=== PATIENT | female | born 1940 | race Caucasian/White ===

== ENCOUNTER 2024-03-04 08:15 | Emergency (ER) | payer OTHER, SELFPAY ==
[2024-03-04 08:28] VITALS: BP 150/73
--- NOTE | 2024-03-04 09:00 | ED.GENMED ---
History of Present Illness
General
Chief Complaint: Abdominal Pain
Source: patient and spouse
Exam Limitations: none
Time Seen by Provider: 03/04/24 08:39
Nursing documentation reviewed up to this point in time: agreed with
Travel History
Have you had any contact with someone who has COVID-19?: No
Do you have any symptoms of coronavirus? Fever > 100 degrees, chills, cough, shortness of breath, sore throat, loss of taste or smell, muscle aches, or headache?: No
History of Present Illness
History of Present Illness:
83-year-old female past medical history of pulmonary fibrosis, Parkinson's, hypertension presenting to the emergency department today with concerns of left lower quadrant abdominal pain started for bowel prep as sharp and somewhat severe does not
radiate. No changes in bowel movements or urination. No vomiting no fevers denies similar symptoms in the past.
Past History
Past History
ED Past Medical History: HTN, Valvular disease (Mitral valve regurg, heart murmur) and Other
ED Past Surgical History: Orthopedic (Bilateral total knee replacements) and Other (Back cyst)
Social History
Tobacco: Non-smoker
Alcohol: None
Drug: None
Personal:
Living: with family
Review of Systems
Review of Systems
Allergies reviewed?: Yes
All Other Systems: ROS reviewed and negative except as documented in HPI and ROS
Phy Exam
Physical Exam
Physical Exam:
GENERAL: Alert , in no apparent distress
EYE: pupils equal and reactive
NECK: Supple, no significant adenopathy.
ENT: o/p clr, mmm.
CARDIAC: Regular rate and rhythm .
LUNGS: Clear breath sounds bilaterally, no acute respiratory distress, no wheezes/rales/rhonchi
ABDOMEN: Generally soft abdomen minimal pain to left lower quadrant
NEUROLOGICAL: Alert and oriented, no focal neuro deficits
SKIN: Warm and dry, skin intact.
MUSCULOSKELETAL: No edema, well perfused.
PSYCH: Normal and appropriate interaction.
Course
Orders/Labs/Results
Orders:
Orders
03/04/24 08:58
CT Abd/Pel (IV only)-DH only Urgent
Comment:
Reason For Exam: llq pain
03/04/24 09:28
Complete Blood Count/With Diff Urgent
Comprehensive Metabolic Panel Urgent
Lactic Acid Urgent
Lipase Urgent
03/04/24 10:07
Iohexol [Omnipaque] See Protocol PO NOW STA
03/04/24 10:24
Ondansetron Injectable [Zofran] 4 mg IV NOW STA
03/04/24 13:14
Urinalysis Reflex To Culture Urgent
Date Specimen was Collected: 03/04/24
Time Specimen was Collected: 13:11
Urine Microscopic Reflex Cult Urgent
Urine Culture Urgent
EZE Source: U
Specimen Description:
Date Specimen was Collected: 03/04/24
Time Specimen was Collected: 13:11
Abnormal Lab Results
03/04/24 03/04/24
09:28 13:14
WBC 15.0 H 10^3/uL
(4.8-10.8)
RBC 3.83 L 10^6/uL
(4.20-5.40)
MCV 101.8 H fL
(81.0-99.0)
MCH 32.9 H pg
(27.0-31.0)
MCHC 32.3 L g/dL
(33.0-37.0)
RDW 14.9 H %
(11.5-14.5)
MPV 10.6 H fL
(7.4-10.4)
Abs Immat Gran (auto) 0.1 H 10^3/uL
(0-0.05)
Absolute Neuts (auto) 12.1 H 10^3/uL
(1.4-6.5)
Absolute Monos (auto) 1.1 H 10^3/uL
(0.1-0.6)
Neutrophils % 80.2 H %
(42.2-75.2)
Lymphocytes % 10.3 L %
(20.5-51.1)
Chloride 111 H mmol/L
(98-107)
Creatinine 0.5 L mg/dL
(0.6-1.0)
Glucose 122 H mg/dl
(70-99)
Urine Ketones 1+ A
(Negative)
Ur Occult Blood Reflex 2+ A
(Negative)
Leukocyte Esterase Rfl 1+ A
(Negative)
Urine RBC 3-6 A /HPF
(0-2)
Urine Bacteria (Reflex) Few A
(Negative)
03/04/24 09:28
03/04/24 09:28
Vital Signs
Initial and Last Documented VS:
Initial Vital Signs
Temp Pulse Resp BP Pulse Ox
97.7 F 70 18 150/73 97
03/04/24 08:28 03/04/24 08:28 03/04/24 08:28 03/04/24 08:28 03/04/24 08:28
Last Documented Vital Signs
Temp Pulse Resp BP Pulse Ox
97.7 F 70 18 136/91 97
03/04/24 08:28 03/04/24 08:28 03/04/24 08:28 03/04/24 12:00 03/04/24 13:45
MDM/Problems Addressed
MDM/Problems Addressed:
83-year-old female presenting to the emergency department today for concerns of left lower quad abdominal pain started few hours ago described as severe. Minimal discomfort to palpation. Plan for CT scan for further assessment otherwise vital
signs are normal here. No additional symptoms otherwise. Here patient has a slightly elevated white count otherwise vital signs normal throughout ER stay otherwise unremarkable urinalysis not consistent with UTI. CT scan without emergent
findings. Patient generally well-appearing with no ongoing abdominal discomfort with reassessment. She appear stable for outpatient management and close primary care follow-up. Return precautions given.
*Critical Care Note
Total Time (30-74mins, 75-104mins- exclusive of procedures): Not Applicable
ED Attending Note
-
Portions of this chart may have been created with voice recognition software.� Occasional wrong word or��sound alike� substitutions may have occurred due to the inherent limitations of voice recognition software.
Discharge Plan
Departure
Patient Disposition: Home (Routine Discharge)
Date of Disposition: 03/04/24
Time of Disposition: 14:33
Patient with high blood pressure during this ER visit?: No
Condition: Good
Covid-19: Not Applicable
Discharge Problem:
Abdominal pain
Instructions: Abdominal Pain
Prescriptions:
No Action
multivitamin [Daily Multiple] 1 EACH tablet
1 ea PO DAILY
coenzyme D77-sbrdagp E 1 CAP capsule
1 cap PO DAILY
cholecalciferol (vitamin D3) 2,000 UNIT tablet
2,000 unit PO DAILY
Referrals:
Ericka Munoz MD [Family Provider] -
Activity Restrictions/Additional Instructions:
You came to the emergency department today with concerns of abdominal pain. Here you had a reassuring evaluation. Please follow close with the primary care doctor for repeated labs as your white blood cell count was somewhat elevated. Return to
the emergency department for any worsening, new or concerning symptoms.
Interventions
Interventions:
*Risk Screen - Suicide Last Done: 03/04/24 09:34
*General Assessment Last Done: 03/04/24 09:33
*Neglect/Abuse Screening Last Done: 03/04/24 09:34
*ED COVID-19 Vaccine History Last Done: 03/04/24 08:28
PN-Dewcbz-Serpsgroxb Assessment Last Done: 03/04/24 09:34
Discharge Date and Time
Print Language: MACANESE
[2024-03-04 09:33] VITALS: BMI 22.8
[2024-03-04 09:35] VITALS: BP 155/101
[2024-03-04 09:43] LABS: % Basophils 0.5 % (0-2); % Eosinophils 1.5 % (0-6); % Immature Granulocytes 0.4 % (0-0.5); % Lymphocytes 10.3 % (20.5-51.1); % Monocytes 7.1 % (1.7-9.3); % Neutrophils 80.2 % (42.2-75.2); Absolute Basophils 0.1 10^3/uL (0-0.2); Absolute Eosinophils 0.2 10^3/uL (0-0.7); Absolute Immature Granulocytes 0.1 10^3/uL (0-0.05); Absolute Lymphocytes 1.5 10^3/uL (1.2-3.4); Absolute Monocytes 1.1 10^3/uL (0.1-0.6); Absolute Neutrophils 12.1 10^3/uL (1.4-6.5); Hemoglobin 12.6 g/dL (12.0-16.0); Mean Corp Hgb Conc. 32.3 g/dL (33.0-37.0); Mean Corpuscular Hgb 32.9 pg (27.0-31.0); Mean Corpuscular Volume 101.8 fL (81.0-99.0); Mean Platelet Volume 10.6 fL (7.4-10.4); Nucleated Red Blood Cells % 0 %; Platelet Count 349 10^3/uL (130-400); Red Blood Cell Count 3.83 10^6/uL (4.20-5.40); Red Cell Dist. Width 14.9 % (11.5-14.5)
[2024-03-04 09:52] LABS: Lactic Acid 1.3 mmol/L (0.7-2.0)
[2024-03-04 09:56] LABS: ALT (SGPT) 16 U/L (0-35); AST (SGOT) 21 U/L (14-36); Albumin 3.7 g/dl (3.5-5.0); Alkaline Phosphatase 101 U/L (38-126); Blood Urea Nitrogen 14 mg/dl (7-17); Calcium 8.8 mg/dl (8.4-10.2); Carbon Dioxide 24 mmol/L (22-30); Chloride 111 mmol/L (98-107); Estimated Creatinine Clearance 53 ml/min; Glucose 122 mg/dl (70-99); Lipase 42 U/L (23-300); Potassium 3.9 mmol/L (3.5-5.1); Sodium 141 mmol/L (135-145); Total Bilirubin 0.6 mg/dl (0.2-1.3); Total Protein 6.8 g/dl (6.3-8.2); eGFR > 60.00
[2024-03-04 10:00] VITALS: BP 149/97
[2024-03-04] MEDS: ZOFRAN 4 MG IV (11:03)
[2024-03-04 12:00] VITALS: BP 136/91
[2024-03-04 13:20] LABS: Urine Albumin Negative (Neg - Trace); Urine Bilirubin Negative (Negative); Urine Character Clear (Clear); Urine Color Yellow; Urine Glucose Negative (Negative); Urine Ketone 1+ (Negative); Urine Leukocyte 1+ (Negative); Urine Nitrite Negative (Negative); Urine Occult Blood 2+ (Negative); Urine Urobilinogen Negative (Neg - 1+)
[2024-03-04 13:34] LABS: Urine Bacteria Few (Negative); Urine Squamous Cell 0-2 /LPF (Few)
[2024-03-04 14:57] VITALS: BP 177/91
== END 2024-03-04 14:58 | disposition home or self-care (01) ==
LOC: EMR 08:15
PROVIDERS: Physician Assistant; EMERGENCY PHYSICIAN Emergency Medicine; FAMILY PHYSICIAN Internal Medicine
DX: R10.32 Left lower quadrant pain (principal); R11.0 Nausea; I10 Essential (primary) hypertension; R01.1 Cardiac murmur, unspecified; I34.0 Nonrheumatic mitral (valve) insufficiency; M19.90 Unspecified osteoarthritis, unspecified site; M81.0 Age-related osteoporosis without current pathological fracture; Z96.653 Presence of artificial knee joint, bilateral; Z88.5 Allergy status to narcotic agent
CPT/HCPCS: 99285; 96374; 74177; 80053; 81003; 81015; 83605; 83690; 85025; 87086; Q9967

== ENCOUNTER → 2025-03-06 08:00 | Outpatient (REF) | payer OTHER, SELFPAY | LOC: HWRCS 08:00 | PROVIDERS: ATTENDING PHYSICIAN Internal Medicine Cardiovascular Disease; FAMILY PHYSICIAN Internal Medicine | DX: R06.09 Other forms of dyspnea (principal) | CPT/HCPCS: 71046; 93306 ==

== ENCOUNTER → 2025-03-31 11:32 | Outpatient (REF) | payer OTHER, SELFPAY | LOC: HWRAD 11:32 | PROVIDERS: ATTENDING PHYSICIAN Internal Medicine Critical Care Medicine; FAMILY PHYSICIAN Internal Medicine | DX: J84.112 Idiopathic pulmonary fibrosis (principal) | CPT/HCPCS: 71250 ==

== ENCOUNTER → 2025-04-28 11:13 | Outpatient (REF) | payer OTHER, SELFPAY | LOC: HWRAD 11:13 | PROVIDERS: ATTENDING PHYSICIAN Internal Medicine | DX: S00.03XA Contusion of scalp, initial encounter (principal); W19.XXXA Unspecified fall, initial encounter | CPT/HCPCS: 70450 ==